=== PATIENT | male | born 1980 | race Caucasian/White ===

== ENCOUNTER 2018-12-01 15:32 | Emergency (ER) | payer MEDICAID ==
[~2018-12-01] VITALS: Ht 157.5 cm; Wt 81.8 kg
[2018-12-01] MEDS ORDERED: CEPHALEXIN MONOHYDRATE 500 MG CAPSULE PO ONE (19:00)
[2018-12-01] MEDS ORDERED: CefTRIAXone SODIUM 1 GM/VIAL IM ONE (19:00)
[2018-12-01] MEDS ORDERED: KETOROLAC TROMETHAMINE 60 MG/2 ML VIAL IM ONE (19:00)
[2018-12-01] MEDS ORDERED: SULFAMETHOX/TRIMETH DS 800-160 MG/TABLET PO ONE (19:00)
[2018-12-01] MEDS ORDERED: LIDOCAINE/PF 1% 2 ML VIAL IM ONE (19:00)
[2018-12-01 19:25] VITALS: BP 131/84
== END 2018-12-01 19:34 | disposition home or self-care (01) ==
LOC: EMS 15:33
DX: L02.31 Cutaneous abscess of buttock (principal); F17.210 Nicotine dependence, cigarettes, uncomplicated
CPT/HCPCS: 96372; 99283; 99406; J0696; J1885; J3490